=== PATIENT | male | born 1990 | race Caucasian/White ===

== ENCOUNTER 2016-11-16 12:27 | Inpatient (IN) | payer BC, OTHER ==
[~2016-11-16] VITALS: Ht 180.3 cm; Wt 81.6 kg
[2016-11-16] MEDS ORDERED: METH500T PO (17:59)
[2016-11-16] MEDS ORDERED: GABA600T2 PO (17:59)
[2016-11-16 18:08] VITALS: BP 131/72
--- NOTE | 2016-11-16 18:08 | NUR ---
Admissions Note 26 year old male admitted to [facility] for alcohol, opioids, benzodiazepine withdrawal. Client reports PMH of hep C (Sep, 2016), Anxiety, Depression, Bipolar, Kidney stones (at age 12). Client is oriented to unit, educated about protocols and how call light works in his room. Initial VS up on admission were: BP: 131/72 HR 104 T: 98.0 R: 18 SpO2: 95% on RA, Pain 0/10. Weight: 172 pounds. Height: 5'11" Client appears anxious, flushed face noted, skin on right lower extremity with redness, it appears as non-raised rash, client states "It is very itchy." skin discolorations around distal lower R extremity, He stated "I have no idea what happen." no swelling noted. skin warm, moist. Bilateral lung coarse on auscultation, greenish mucous noted, abdomen soft, non-tender, no edema noted. Client has NKA. Regular diet ordered. Client denies any history of seizures. Urine was collected upon admission and noted dark red. All safety measures instituted. Seizure precaution. Call light within reach. Will continue to monitor.
[2016-11-16 18:37] LABS: *AMPHETAMINE, URINE POSITIVE (NEGATIVE); *BARBITURATE, URINE NEGATIVE (NEGATIVE); *CANNABINOID, URINE POSITIVE (NEGATIVE); *COCCAINE, URINE NEGATIVE (NEGATIVE); *OPIATE, URINE NEGATIVE (NEGATIVE); *PHENCYCLIDINE SCREEN,URINE NEGATIVE (NEGATIVE)
[2016-11-16] MEDS ORDERED: MIRALAX 17 GM POWD.PACK PO PRN (18:45)
[2016-11-16] MEDS ORDERED: LORAZEPAM 2 MG/1 ML VIAL IM PRN (18:45)
[2016-11-16] MEDS ORDERED: ACETAMINOPHEN 325 MG TABLET PO PRN (18:45)
[2016-11-16] MEDS ORDERED: ONDANSETRON 4 MG/2 ML VIAL IM PRN (18:45)
[2016-11-16] MEDS ORDERED: DICYCLOMINE HCL 20 MG TABLET PO PRN (18:45)
[2016-11-16] MEDS ORDERED: MAGNESIUM HYDROXIDE 30 ML LIQUID UDC PO PRN (18:45)
[2016-11-16] MEDS ORDERED: LOPERAMIDE HCL 2 MG CAPSULE PO PRN ×2 (18:45)
[2016-11-16] MEDS ORDERED: THIAMINE HCL 200 MG/2 ML VIAL IM ONE (18:45)
[2016-11-16] MEDS ORDERED: BUPRENORPHINE HCL 2 MG TAB.SUBL SL PRN ×2 (18:45→19:00)
[2016-11-16] MEDS ORDERED: ONDANSETRON ODT 4 MG TAB.RAPDIS SL PRN (18:45)
[2016-11-16] MEDS ORDERED: diphenhydrAMINE 50 MG CAPSULE PO PRN (18:45)
[2016-11-16] MEDS ORDERED: MAG HYDROX/AL HYDROX/SIMETH 30 ML LIQUID UDC PO PRN (18:45)
[2016-11-16] MEDS ORDERED: LORAZEPAM 1 MG TABLET PO PRN ×2 (18:45)
[2016-11-16] MEDS ORDERED: IBUPROFEN 400 MG TABLET PO PRN (18:45)
[2016-11-16] MEDS ORDERED: CLONIDINE HCL 0.1 MG TABLET PO PRN (18:45)
[2016-11-16 20:00] VITALS: BP 131/75
[2016-11-16] MEDS ORDERED: BUPRENORPHINE HCL 2 MG TAB.SUBL SL SCH ×2 (20:00)
--- NOTE | 2016-11-16 20:00 | NUR ---
ADMISSION NOTE Pt is 26 year old male, admitted to [facility] 3rd floor on 11/17/15 at 1800; as per day shift, skin and body check done no contraband found. Pt reports no known allergies. PCP Dr Victor Manuel Harrell, [place], [place]. Pt denies previous hospitalizations. Pt reports being homeless for past couple of weeks. Pt reports PMH of: (1) anxiety - diagnosed in 2007; (2) depression - diagnosed in 2009; (3) Hep C - diagnosed in 2016; (4) Kidney stones childhood; (5) herniated disks, slipped disk, pinched nerve - 2009. Pt reports one episode of BZO withdrawal related seizure in 2009, pt ddi not receive medical care at that time. Pt reports she takes the following home medications; 1. Lexapro - 10 mg PO daily for depression, last taken 11/03/16 2. Gabapentin - 600 mg PO TID for depression, last taken on 11/16/16 3. Robaxin - 500 mg prn for body aches, unknown date of last use 4. Subutex 2 mg 2 mg sublingual QID, last taken 11/15/16, 4 mg Substance use hx: 1.Subutex per pt, he started to use heroin at age 19, was in treatment centers where he started to use Suboxone in 2012 2014, since 2014, pt reports using Subutex 8 mg daily sublingually, last taken 11/15/16 In the amount of 4 mg 2.BZO (Xanax and Klonopin) pt started to use BZO at age 17, for last 5 yrs, pt reports using Xanax (prescribed)or klonopin (from streets) daily in the amount of 4-6 mg/ day. Last taken klonopin 11/15/16, 5 mg PO 3.ETOH (750 ml of whiskey and 12 pack beer) pt started to drink ETOH at age 17, fom past 4 yrs, pt reports drinking 750 ml of whiskey and 12 beers daily. Last drink 11/15/16, 36 oz of beer 4.Methamphetamine pt usinfg on/off for past 5 yrs, on average 1g/ day, last taken 11/16/16 1 g by IV 5.Marijuana pt started to smoke marijuana at age 17, 3.5 g daily by smoking, last intake 11/16/16, 1 g by smoking Pt reports smoking tobacco since 2006, approximately 1 pack per day. Provided with smoking cessation information, verbalized understanding. Rehab/ Detox History: 1.[facility] - in 2007 for 30 days 2.Right [facility] in 2010 for 30 days 3.[facility] in 2011 for 3 wks 4.[place], [place] Aug, 2016 for 50 days. Pt reports longest period of sobriety was 9 months at age 20 y o, but pt repots he was on maintenance Suboxone at that time. Pt aaox4, cooperative, speech clear and coherent. Pt reports chills, mild body aches 5/10, stuffy nose, stomach cramps, anxiety; noted flushed skin with minimal sweating, piloerection, minimal hand tremors. COWS 12, CIWA 8. Denies n/v, headache, hallucinations. Denies SI/HI. Skin without open wounds, noted rash on right ankle, non-raised, pt doesn't/t know the causes, states rash developed couple of days ago. Pupils PERRLA, 3 mm bilat. Noted cracked skin on lips. Lung sounds with coarse rhonchi bilat, pt reports cough with green thick sputum for past 5 days. Heart rate regular, cap refill <3 sec, no edema noted. Bowel sounds active x 4, pt denies n/v/d. Pt denies urinary difficulties, yet reports urine color as dark red for past 3 wks. UDS collected Ht /, Wt 180. VS: BP 131/75, HR 98, RR 16, Spo2 99%, temp 98.4 MD notified about pt admission, pt oriented to floor and room, demonstrated use of call light. Side rails up x 2, call light within reach, bed locked in lowest position.
[2016-11-16 20:06] LABS: BASOPHILS # (AUTO) 0.1 K/uL (0.0-8.0); BASOPHILS % (AUTO) 0.7 % (0.0-2.0); EOSINOPHILS # (AUTO) 0.4 K/uL (0.0-0.7); EOSINOPHILS % (AUTO) 4.3 % (0.0-7.0); LYMPHOCYTES # (AUTO) 2.3 K/uL (40.0-85.0); LYMPHOCYTES % (AUTO) 23.6 % (20.5-51.5); MEAN CORPUSCULAR HEMOGLOBIN 29.9 uug (23.8-33.4); MEAN CORPUSCULAR HGB CONC 35 g/dL (32.5-36.3); MEAN CORPUSCULAR VOLUME 86.1 fL (73.0-96.2); MONOCYTES # (AUTO) 1.3 K/uL (2.0-10.0); MONOCYTES % (AUTO) 13.5 % (0.0-11.0); NEUTROPHILS # (AUTO) 5.7 K/uL (1.8-8.9); NEUTROPHILS % (AUTO) 57.9 % (38.5-71.5); PLATELET COUNT (AUTO) 316 K/uL (152-348); RED CELL DISTRIBUTION WIDTH 12.7 % (12.1-16.2); WHITE BLOOD COUNT (AUTO) 9.8 K/uL (3.6-10.2)
[2016-11-16 20:23] LABS: ETHANOL < 3 MG/DL (0-0)
[2016-11-16 20:27] LABS: ALANINE AMINOTRANSFERASE 269 U/L (16-63); ALBUMIN 4.2 g/dL (3.4-5.0); ALKALINE PHOSPHATASE 136 U/L (50-136); AMYLASE 29 U/L (25-115); ASPARTATE AMINOTRANSFERASE 187 U/L (15-37); BILIRUBIN,TOTAL 1.6 mg/dL (0.2-1.0); CALCIUM 9.4 mg/dL (8.5-10.1); CARBON DIOXIDE 32 mmol/L (21-32); CHLORIDE 98 mmol/L (98-107); CREATININE 0.8 mg/dL (0.6-1.3); GFR 118 mL/min (>60); GLUCOSE 98 mg/dL (74-106); LIPASE 109 U/L (73-393); MAGNESIUM 2.3 mg/dL (1.8-2.4); POTASSIUM 3.5 mmol/L (3.5-5.1); SODIUM SERUM 139 mmol/L (136-145); TOTAL PROTEIN, SERUM 8.4 g/dL (6.4-8.2); UREA NITROGEN, BLOOD 16 mg/dL (7-18)
[2016-11-16 20:35] LABS: AMMONIA 15 umol/L (11-32)
[2016-11-16 20:47] LABS: HIV-1 p24 ANTIGEN NON REACTIVE (NONREACTIVE); HIV-1/2 ANTIBODY NON REACTIVE (NONREACTIVE)
[2016-11-16 20:58] LABS: THYROID STIMULATING HORMONE 0.441 mIU/mL (0.358-3.740)
[2016-11-16] MEDS: GABAPENTIN 300 MG CAPSULE PO SCH (20:59)
[2016-11-16] MEDS ORDERED: LORAZEPAM 1 MG TABLET PO SCH (21:00)
--- NOTE | 2016-11-16 21:20 | NUR ---
MRSA SWAB MRSA swab of nares done and sent to lab
[2016-11-17] VITALS: BP 135/77
[2016-11-17] MEDS: HYDROXYZINE PAMOATE 25 MG CAPSULE PO PRN (00:57)
[2016-11-17] MEDS: METHOCARBAMOL 750 MG TABLET PO PRN (00:57)
--- NOTE | 2016-11-17 00:57 | NUR ---
PRN CLONIDINE, VISTARIL, MOTRIN Pt c/o subutex withdrawal, reports moderate anxiety, body aches 5/10, chills. COWS 8, CIWA 5. Administered prn Clonidine 0.1 mg PO, Vistaril 50 mg PO , Motrin 400 mg PO as ordered. Pt in bed, safety precautions in place, will continue to monitor
--- NOTE | 2016-11-17 02:00 | NUR ---
REASSESSMENT Pt sleeping soundly, RR unlabored. Did not bother pt at this time.
[2016-11-17 04:00] VITALS: BP 100/60
--- NOTE | 2016-11-17 04:00 | NUR ---
CIWA/COWS DEFERRED COWS/CIWA assessment deferred per MD order; pt sleeping soundly, fall precautions in place, will continue to monitor Addendum: 11/17/16 at 0618 by ARNOLDO GASTELUM RN Amended: Links added.
[2016-11-17] MEDS ORDERED: ESCI10TA PO (04:28)
[2016-11-17] MEDS ORDERED: BUPR2TAB3 SL (04:28)
--- NOTE | 2016-11-17 07:30 | NUR ---
Start of shift note; Patient is AOX4. Patient is a 26 y/o male admitted on 11/16/16 for Opiate/ Benzo /Alcohol dependence. Patient was placed on 5 day Ativan and 6 day Subutex taper started on 11/16/16 per endorsement. Patient reported history of kidney stones, herniated disc, anxiety, depression. Patient is on fall and seizure precaution. Bed in lowest position, call light within reach. Will continue to monitor patient.
--- NOTE | 2016-11-17 07:37 | NUR ---
END OF SHIFT NOTE Pt is 26 y o male, admitted on 11/16/16 for ETOH, Subutex, bzo (klonopin/ Xanax) withdrawal. On admission, pt had withdrawal s/s of anxiety, chills, piloerection, flushed face, sweats, tremors, stomach cramps, body aches. Pt received Subutex and Ativan scheduled doses. Pt received prn Clonidine, Vistaril, Motrin at 0057 for anxiety, chills, sweats, body aches. Last COWS 8, CIWA 5 at 0000; pt fell asleep at 0100, slept for 5 hrs. MRSA swab was done on admission, pt needs sputum culture collected. Attempted at 0645 am but pt was unable to cough. Pt had dark red urine, rash on right leg, greenish-dave sputum; MD aware. Pt is on fall, seizure precautions, report endorsed to day shift nurse.
[2016-11-17 08:00] VITALS: BP 98/64
[2016-11-17] MEDS ORDERED: BUPRENORPHINE HCL 2 MG TAB.SUBL SL SCH ×3 (09:00→17:00)
[2016-11-17] MEDS ORDERED: TUBERCULIN,PURIF.PROT.DERIV. 5 TU/0.1 ML TEST ID ONE (09:00)
[2016-11-17] MEDS: LORAZEPAM 1 MG TABLET PO SCH ×4 (09:10→21:22)
[2016-11-17] MEDS: MULTIVITAMINS,THERAPEUTIC TABLET PO SCH (09:10)
[2016-11-17] MEDS: GABAPENTIN 300 MG CAPSULE PO SCH ×3 (09:10→21:22)
[2016-11-17] MEDS: THIAMINE HCL 100 MG TABLET PO SCH (09:11)
[2016-11-17] MEDS: FOLIC ACID 1 MG TABLET PO SCH (09:11)
[2016-11-17] MEDS: ESCITALOPRAM OXALATE 10 MG TABLET PO SCH (11:24)
[2016-11-17 12:00] VITALS: BP 111/70
[2016-11-17 16:00] VITALS: BP 97/65
--- NOTE | 2016-11-17 18:16 | NUR ---
End of shift note; Patient is AOX4. Patient remained compliant with treatment plan and medication regime. Medications were effective in reducing withdrawal symptoms. Patient was placed on 5 day Ativan and 6 day Subutex taper, no adverse reactions noted. Patient's last COWS is 6 and last CIWA is 4 at 1600. All safety measures secured. Met all patient's needs.
[2016-11-17 20:00] VITALS: BP 97/61
--- NOTE | 2016-11-17 20:00 | NUR ---
Start of Shift Patient is a 26-year old, male admitted for Opiate, Benzo, Alcohol Dependence. Patient on a 5-day Ativan and 6-day Subutex tapers started on 11/16/16 and tolerates well. Patient reported history of kidney stones, herniated disc, anxiety, depression. Patient is AAOx4 and with no SOB noted. Not in respi distress. Pt is ambulatory with steady gait and with no skin issues. Fall, universal and safety prec in place. Call light within reach. Kept pt warm, dry and comfortable. Latest COWS=4, CIWA=3. All needs met. Will continue to monitor pt.
[2016-11-18] VITALS: BP 94/58
[2016-11-18 04:00] VITALS: BP 100/63
--- NOTE | 2016-11-18 07:00 | NUR ---
End of Shift Patient is a 26-year old, male admitted for Opiate, Benzo, Alcohol Dependence. Patient on a 5-day Ativan and 6-day Subutex tapers started on 11/16/16 and tolerates well. Patient reported history of kidney stones, herniated disc, anxiety, depression. Patient is AAOx4 and with no SOB noted. Not in respi distress. Pt is ambulatory with steady gait and with no skin issues. Fall, universal and safety prec in place. Call light within reach. Kept pt warm, dry and comfortable. Latest COWS=4, CIWA=3, slept for 8 hours. All needs met. Endorsed to AM shift nurse for continuity of care.
--- NOTE | 2016-11-18 07:45 | NUR ---
Start of shift note; Patient is AOX4. Patient is a 26 y/o male admitted on 11/16/16 for Opiate/ Benzo /Alcohol dependence. Patient was placed on 5 day Ativan started on 11/17/16 and 6 day Subutex taper started on 11/16/16 no adverse reactions noted. Patient reported history of kidney stones, herniated disc, anxiety, depression. Patient is on fall and seizure precaution. Bed in lowest position, call light within reach. Educated patient regarding treatment plan and medication regime, verbalized understanding. Patient's current COWS score is 6 and CIWA score of 4 m/b hot and cold flushes, anxiety, nasal stuffiness noted upon initial assessment. All safety measures secured. Will continue to monitor patient.
[2016-11-18 08:00] VITALS: BP 107/63
[2016-11-18] MEDS: GABAPENTIN 300 MG CAPSULE PO SCH ×3 (08:46→20:50)
[2016-11-18] MEDS: FOLIC ACID 1 MG TABLET PO SCH (08:47)
[2016-11-18] MEDS: BUPRENORPHINE HCL 2 MG TAB.SUBL SL SCH ×4 (08:47→20:52)
[2016-11-18] MEDS: THIAMINE HCL 100 MG TABLET PO SCH (08:47)
[2016-11-18] MEDS: MULTIVITAMINS,THERAPEUTIC TABLET PO SCH (08:47)
[2016-11-18] MEDS: ESCITALOPRAM OXALATE 10 MG TABLET PO SCH (08:47)
[2016-11-18] MEDS: LORAZEPAM 1 MG TABLET PO SCH ×3 (08:48→20:50)
[2016-11-18] MEDS ORDERED: BUPRENORPHINE HCL 2 MG TAB.SUBL SL SCH (09:00)
[2016-11-18 09:20] LABS: ALBUMIN 3.1 g/dL (3.4-5.0); BILIRUBIN,DIRECT 0.2 mg/dL (0.0-0.2); BILIRUBIN,TOTAL 0.5 mg/dL (0.2-1.0); CALCIUM 8.8 mg/dL (8.5-10.1); CREATININE 0.8 mg/dL (0.6-1.3); PHOSPHOROUS 3.6 mg/dL (2.5-4.9); TOTAL PROTEIN, SERUM 6.6 g/dL (6.4-8.2)
--- NOTE | 2016-11-18 11:00 | NUR ---
MD communication; Respiratory culture result reviewed by MD, no new orders noted.
[2016-11-18 12:00] VITALS: BP 100/64
[2016-11-18 16:00] VITALS: BP 112/62
[2016-11-18] MEDS: METHOCARBAMOL 750 MG TABLET PO PRN (17:09)
--- NOTE | 2016-11-18 17:10 | NUR ---
PRN medication; Patient is complaining of body/muscle aches, PRN Robaxin 750mg PO given as per ordered. Will continue to monitor patient for effectiveness of treatment.
--- NOTE | 2016-11-18 18:11 | NUR ---
Re-assessment; PRN medication is effective, patient denies muscle/body aches at this time.
--- NOTE | 2016-11-18 18:13 | NUR ---
End of shift note; Patient is AOX4. Patient is a 26 y/o male admitted on 11/16/16 for Opiate/ Benzo /Alcohol dependence. Patient was placed on 5 day Ativan started on 11/17/16 and 6 day Subutex taper started on 11/16/16 no adverse reactions noted. Patient reported history of kidney stones, herniated disc, anxiety, depression. Patient is on fall and seizure precaution. Bed in lowest position, call light within reach. Patient remained compliant with treatment plan and medication regime. Medications were effective in reducing withdrawal symptoms. Safety measures secured. Met all needs.
[2016-11-18 20:00] VITALS: BP 100/56
--- NOTE | 2016-11-18 20:00 | NUR ---
Start of Shift Patient is a 26-year old, male admitted for Opiate, Benzo, Alcohol Dependence. Patient on a 5-day Ativan and 6-day Subutex tapers started on 11/16/16 and tolerates well. Patient reported history of kidney stones, herniated disc, anxiety, depression. Patient is AAOx4 and with no SOB noted. Not in respi distress. Pt still noted with productive cough, with greenish sputum, though per pt verbalization: "my cough is getting better today than yesterday." Sputum culture result reviewed by Dr. Voss, with no new orders. Pt is ambulatory with steady gait and with no skin issues. Fall, universal and safety prec in place. Call light within reach. Kept pt warm, dry and comfortable. Latest COWS=3, CIWA=2. All needs met. Will continue to monitor pt.
[2016-11-19] VITALS: BP 96/58
--- NOTE | 2016-11-19 04:08 | NUR ---
RN note Pt refused vital signs check and COWS/CIWA assessment despite explanation of risks and benefits. RR=14, no SOB noted nor facial grimacing noted. Will continue to monitor.
--- NOTE | 2016-11-19 07:01 | NUR ---
End of Shift Patient is a 26-year old, male admitted for Opiate, Benzo, Alcohol Dependence. Patient on a 5-day Ativan and 6-day Subutex tapers started on 11/16/16 and tolerates well. Patient reported history of kidney stones, herniated disc, anxiety, depression. Patient is AAOx4 and with no SOB noted. Not in respi distress. Pt still noted with productive cough, with greenish sputum, though per pt verbalization: "my cough is getting better today than yesterday." Sputum culture result reviewed by Dr. Voss, with no new orders. Pt is ambulatory with steady gait and with no skin issues. Fall, universal and safety prec in place. Call light within reach. Kept pt warm, dry and comfortable. Latest COWS=2, CIWA=2, slept for 7 hours. All needs met. Endorsed to AM shift nurse for continuity of care.
--- NOTE | 2016-11-19 07:40 | NUR ---
Start of shift note; Patient is AOX4. Patient is a 26 y/o male admitted on 11/16/16 for Opiate/ Benzo /Alcohol dependence. Patient was placed on 5 day Ativan started on 11/17/16 and 6 day Subutex taper started on 11/16/16 no adverse reactions noted. Patient reported history of kidney stones, herniated disc, anxiety, depression. Patient is on fall and seizure precaution. Bed in lowest position, call light within reach. Educated patient regarding treatment plan and medication regime, verbalized understanding. Patient is complaining of hot and cold flushes, nasal stuffiness noted upon initial assessment. All safety measures secured. Will continue to monitor patient.
[2016-11-19 08:00] VITALS: BP 116/89
[2016-11-19 08:28] LABS: ALANINE AMINOTRANSFERASE 363 U/L (16-63); ALBUMIN 2.7 g/dL (3.4-5.0); ALKALINE PHOSPHATASE 147 U/L (50-136); ASPARTATE AMINOTRANSFERASE 305 U/L (15-37); BILIRUBIN,DIRECT 0.1 mg/dL (0.0-0.2); BILIRUBIN,TOTAL 0.3 mg/dL (0.2-1.0); CALCIUM 8.1 mg/dL (8.5-10.1); CHLORIDE 107 mmol/L (98-107); CREATININE 0.7 mg/dL (0.6-1.3); GFR > 130 mL/min (>60); GLUCOSE 112 mg/dL (74-106); MAGNESIUM 2.1 mg/dL (1.8-2.4); POTASSIUM 3.7 mmol/L (3.5-5.1); SODIUM SERUM 143 mmol/L (136-145); TOTAL PROTEIN, SERUM 5.9 g/dL (6.4-8.2); UREA NITROGEN, BLOOD 13 mg/dL (7-18)
[2016-11-19 08:29] LABS: CARBON DIOXIDE 33 mmol/L (21-32)
[2016-11-19] MEDS: GABAPENTIN 300 MG CAPSULE PO SCH ×2 (08:49→15:34)
[2016-11-19] MEDS: MULTIVITAMINS,THERAPEUTIC TABLET PO SCH (08:50)
[2016-11-19] MEDS: BUPRENORPHINE HCL 2 MG TAB.SUBL SL SCH ×3 (08:50→21:00)
[2016-11-19] MEDS: FOLIC ACID 1 MG TABLET PO SCH (08:50)
[2016-11-19] MEDS: LORAZEPAM 1 MG TABLET PO SCH ×4 (08:50→21:26)
[2016-11-19] MEDS: THIAMINE HCL 100 MG TABLET PO SCH (08:50)
[2016-11-19] MEDS: ESCITALOPRAM OXALATE 10 MG TABLET PO SCH (08:50)
[2016-11-19] MEDS: METHOCARBAMOL 750 MG TABLET PO PRN (11:26)
[2016-11-19] MEDS: HYDROXYZINE PAMOATE 25 MG CAPSULE PO PRN (11:26)
--- NOTE | 2016-11-19 11:29 | NUR ---
PRN medication; Patient is complaining of muscle aches and noted to be very anxious m/b pacing back in forth in the room, redirected as needed. PRN Vistaril 50mg PO and Robaxin 750mg PO given. Will continue to monitor patient for effectiveness of medication.
[2016-11-19 12:00] VITALS: BP 127/88
--- NOTE | 2016-11-19 12:18 | NUR ---
PRN medication; Patient is complaining of tooth pain rated 6/10, Motrin 400mg PO PRN given for pain. Will continue to monitor for effectiveness of medication.
--- NOTE | 2016-11-19 12:29 | NUR ---
Re-assessment; PRN medications effective, patient noted to be calm and comfortable, denies muscle aches at this time.
--- NOTE | 2016-11-19 13:18 | NUR ---
Re-assessment; PRN Motrin ineffective. Patient is still complaining of toothache, MD made aware, awaiting for new orders.
[2016-11-19] MEDS ORDERED: BENZOCAINE ORAL CARE 12 ML BOTTLE MM PRN (14:00)
--- NOTE | 2016-11-19 15:34 | NUR ---
PRN medication; PRN Anbesol oral care given for dental/ tooth pain. Will continue to monitor effectiveness of medication.
[2016-11-19 16:00] VITALS: BP 101/58
--- NOTE | 2016-11-19 16:34 | NUR ---
Re-assessment; Patient denies pain at this time. PRN Anbesol is effective.
--- NOTE | 2016-11-19 18:17 | NUR ---
End of shift note; Patient is AOX4. Patient is a 26 y/o male admitted on 11/16/16 for Opiate/ Benzo /Alcohol dependence. Patient was placed on 5 day Ativan started on 11/17/16 and 6 day Subutex taper started on 11/16/16 no adverse reactions noted. Patient reported history of kidney stones, herniated disc, anxiety, depression. Patient is on fall and seizure precaution. Bed in lowest position, call light within reach. Patient remained compliant with treatment plan and medication regime. Medications were effective in reducing withdrawal symptoms. Patient's last COWS score is 3 and CIWA of 1 at 1600. Safety measures secured. Met all needs.
--- NOTE | 2016-11-19 19:45 | NUR ---
START OF SHIFT NOTE Received report from day shift nurse. Pt is 26 y o male, admitted on 11/16/16 for Subutex, BZO (Xanax and Klonopin), ETOH (whiskey and beer), methamphetamine, marijuana. Pt is on 5 day Ativan, 6 day Subutex taper. Pt in bed, asleep. Awakened by verbal stimuli, oriented x 3, cooperative. Noted flushed skin, no tremors, pt reports mild anxiety, pt reports mild anxiety and stuffy nose. Pt denies pain at this time. Noted productive cough with small amounts of yellowish sputum, lung sounds clear bilat on auscultation. CXR done and no abnormalities shown on CXR. Heart rate regular. Bowel sounds active x 4, denies n/v/d. Pt denies urinary difficulties but reports dark-yellow urine. Per day shift MD aware, no new orders. PMH of Hep C, herniated disks, anxiety, depression. Pt is on fall and seizure precautions. Side rails up x 2, call light within reach, bed locked in lowest position.
[2016-11-19 20:00] VITALS: BP 96/54
[2016-11-19] MEDS ORDERED: GABAPENTIN 300 MG CAPSULE PO SCH (21:00)
[2016-11-19] MEDS: DICYCLOMINE HCL 20 MG TABLET PO SCH (21:26)
--- NOTE | 2016-11-19 21:55 | NUR ---
SUBUTEX HELD Pt in room, BP 96/54. COWS score 4. As per Subutex order parameters, held the dose d/t DBP <[address] Voss notified, NNO.
[2016-11-20] VITALS: BP 109/70
--- NOTE | 2016-11-20 | NUR ---
CIWA/COWS DEFERRED COWS/CIWA assessment deferred per MD order; pt sleeping soundly, fall precautions in place, will continue to monitor Addendum: 11/21/16 at 0226 by ARNOLDO GASTELUM RN Amended: Links added.
--- NOTE | 2016-11-20 | NUR ---
CIWA/COWS DEFERRED COWS/CIWA assessment deferred per MD order; pt sleeping soundly, fall precautions in place, will continue to monitor Addendum: 11/20/16 at 0329 by ARNOLDO GASTELUM RN Amended: Links added.
[2016-11-20 04:00] VITALS: BP 105/50
--- NOTE | 2016-11-20 04:00 | NUR ---
CIWA/COWS DEFERRED COWS/CIWA assessment deferred per MD order; pt sleeping soundly, fall precautions in place, will continue to monitor Addendum: 11/20/16 at 0433 by ARNOLDO GASTELUM RN Amended: Links added.
[2016-11-20 04:06] LABS: HCV AB >11.0 s/co ratio (0.0-0.9); HEPATITIS B CORE AB, IgM Negative (Negative); HEPATITIS B SURFACE AG Negative (Negative)
--- NOTE | 2016-11-20 07:21 | NUR ---
END OF SHIFT NOTE Pt is 26 y o male, admitted on 11/16/16 for Subutex, BZO (Xanax and Klonopin), ETOH (whiskey and beer), methamphetamine, marijuana. Pt is on 5 day Ativan, 6 day Subutex taper. Pt had withdrawal s/s of chills, anxiety, nasal congestion. Scheduled Subutex was held d/t BP of 96/54. Pt slept for 10 hr throughout the shift, VSS, last COWS 4, CIWA 3 at 1999. No prns were received. PMH of Hep C, herniated disks, anxiety, depression. Pt is on fall and seizure precautions. Report endorsed to day shift nurse.
--- NOTE | 2016-11-20 07:55 | NUR ---
Start of shift note; Patient is AOX4. Patient is a 26 y/o male admitted on 11/16/16 for Opiate/ Benzo /Alcohol dependence. Patient was placed on 5 day Ativan started on 11/17/16 and 6 day Subutex taper started on 11/16/16 no adverse reactions noted. Patient reported history of kidney stones, herniated disc, anxiety, depression. Patient is on fall and seizure precaution. Bed in lowest position, call light within reach. Educated patient regarding treatment plan and medication regime, verbalized understanding. Patient is complaining of hot and cold flushes, body aches noted upon initial assessment. All safety measures secured. Will continue to monitor patient.
[2016-11-20 08:00] VITALS: BP 98/62
[2016-11-20] MEDS ORDERED: GABAPENTIN 300 MG CAPSULE PO SCH (09:00)
[2016-11-20] MEDS ORDERED: BUPRENORPHINE HCL 2 MG TAB.SUBL SL SCH (09:00)
[2016-11-20] MEDS: ESCITALOPRAM OXALATE 10 MG TABLET PO SCH (09:20)
[2016-11-20] MEDS: THIAMINE HCL 100 MG TABLET PO SCH (09:20)
[2016-11-20] MEDS: LORAZEPAM 1 MG TABLET PO SCH ×3 (09:20→20:33)
[2016-11-20] MEDS: FOLIC ACID 1 MG TABLET PO SCH (09:20)
[2016-11-20] MEDS: MULTIVITAMINS,THERAPEUTIC TABLET PO SCH (09:20)
[2016-11-20] MEDS: DICYCLOMINE HCL 20 MG TABLET PO SCH ×3 (09:20→20:33)
[2016-11-20] MEDS ORDERED: METHYL SALICYLATE/MENTHOL CREAM 28 GM TUBE TOP PRN (11:30)
[2016-11-20] MEDS: LIDOCAINE 5% PATCH TD SCH (11:33)
[2016-11-20 12:00] VITALS: BP 107/61
[2016-11-20] MEDS: BACLOFEN 10 MG TABLET PO SCH ×2 (14:16→20:37)
[2016-11-20] MEDS: GABAPENTIN 300 MG CAPSULE PO SCH ×2 (14:16→20:33)
[2016-11-20 16:00] VITALS: BP 101/55
[2016-11-20] MEDS ORDERED: MAGNESIUM CITRATE 296 ML BOTTLE PO PRN (17:30)
[2016-11-20] MEDS ORDERED: BISACODYL 5 MG TABLET.DR PO PRN (17:30)
[2016-11-20] MEDS ORDERED: BISACODYL 10 MG SUPP.RECT RC PRN (17:30)
[2016-11-20] MEDS: BUPRENORPHINE HCL 2 MG TAB.SUBL SL SCH ×2 (17:37→20:33)
--- NOTE | 2016-11-20 19:50 | NUR ---
START OF SHIFT NOTE Received report from day shift nurse. Pt is 26 y o male, admitted on 11/16/16 for Subutex, BZO (Xanax an d Klonopin), ETOH (whiskey and beer), methamphetamine, marijuana. PMH of Hep C, herniated disks, anxiety, depression. Pt is on 5 day Ativan taper started 11/17/16. Noted that Subutex taper got modified by Dr Voss today so that last day of taper will be 11/22/16. Pt in bed, watching T, aaox4. Noted flushed skin with mild diaphoresis, pt reports mild anxiety, and stuffy nose. No tremors noted. Pt reports body aches 3/10, generalized. R unlabored, lung sounds clear bilat, observed productive cough with small amounts of yellowish-white sputum. Heart rate regular. Bowel sounds active x 4, denies n/v/stomach cramps. Pt denies urinary difficulties but reports dark-yellow urine. Pt is on fall and seizure precautions. Side rails up x 2, call light within reach, bed locked in lowest position.
[2016-11-20 20:00] VITALS: BP 103/65
[2016-11-21] VITALS: BP 107/53
--- NOTE | 2016-11-21 | NUR ---
CIWA/COWS DEFERRED COWS/CIWA assessment deferred per MD order; pt sleeping soundly, fall precautions in place, will continue to monitor
[2016-11-21 04:00] VITALS: BP 100/52
--- NOTE | 2016-11-21 04:00 | NUR ---
CIWA/COWS DEFERRED COWS/CIWA assessment deferred per MD order; pt sleeping soundly, fall precautions in place, will continue to monitor Addendum: 11/21/16 at 0625 by ARNOLDO GASTELUM RN Amended: Links added.
--- NOTE | 2016-11-21 07:10 | NUR ---
END OF SHIFT NOTE Pt is 26 y o male, admitted on 11/16/16 for Subutex, BZO (Xanax and Klonopin), ETOH (whiskey and beer), methamphetamine, marijuana. Pt is on day 4 of 5 day Ativan taper started 11/17/16 and day 4 of Subutex taper, subutex taper was modified on 11/21/16 to be extended until 11/22/16. Pi was observed with withdrawal s/s of anxiety, body aches, runny nose, sweating. Last COWS 6, CIWA 3. VSS. All scheduled medication given as ordered, no prns were administered. Pt slept for 7 hrs. Pt is on fall and seizure precautions. Report endorsed juanpablo day shift nurse.
--- NOTE | 2016-11-21 07:33 | NUR ---
Start of shift note; Patient is AOX4. Patient is a 26 y/o male admitted on 11/16/16 for Opiate/ Benzo /Alcohol dependence. Patient was placed on 5 day Ativan started on 11/17/16 and 6 day Subutex taper started on 11/16/16 no adverse reactions noted. Patient reported history of kidney stones, herniated disc, anxiety, depression. Patient is on fall and seizure precaution. Bed in lowest position, call light within reach. Educated patient regarding treatment plan and medication regime, verbalized understanding. Patient is complaining of hot and cold flushes, body aches noted upon initial assessment. Patient 's last COWS is 6 and CIWA of 3 per endorsement. All safety measures secured. Will continue to monitor patient.
[2016-11-21 07:53] LABS: ALANINE AMINOTRANSFERASE 525 U/L (16-63); ALBUMIN 2.8 g/dL (3.4-5.0); ALKALINE PHOSPHATASE 145 U/L (50-136); ASPARTATE AMINOTRANSFERASE 379 U/L (15-37); BILIRUBIN,DIRECT 0.1 mg/dL (0.0-0.2); BILIRUBIN,TOTAL 0.3 mg/dL (0.2-1.0); CALCIUM 8.2 mg/dL (8.5-10.1); CARBON DIOXIDE 31 mmol/L (21-32); CHLORIDE 107 mmol/L (98-107); CREATININE 0.7 mg/dL (0.6-1.3); GFR > 130 mL/min (>60); GLUCOSE 99 mg/dL (74-106); PHOSPHOROUS 4.5 mg/dL (2.5-4.9); POTASSIUM 4.1 mmol/L (3.5-5.1); SODIUM SERUM 142 mmol/L (136-145); TOTAL PROTEIN, SERUM 5.9 g/dL (6.4-8.2); UREA NITROGEN, BLOOD 16 mg/dL (7-18)
[2016-11-21 08:00] VITALS: BP 102/66
[2016-11-21] MEDS ORDERED: BUPRENORPHINE HCL 2 MG TAB.SUBL SL SCH ×2 (09:00)
[2016-11-21] MEDS: THIAMINE HCL 100 MG TABLET PO SCH (09:00)
[2016-11-21] MEDS: ESCITALOPRAM OXALATE 10 MG TABLET PO SCH (09:17)
[2016-11-21] MEDS: FOLIC ACID 1 MG TABLET PO SCH (09:17)
[2016-11-21] MEDS: LORAZEPAM 1 MG TABLET PO SCH ×2 (09:17→20:03)
[2016-11-21] MEDS: MULTIVITAMINS,THERAPEUTIC TABLET PO SCH (09:17)
[2016-11-21] MEDS: DICYCLOMINE HCL 20 MG TABLET PO SCH ×3 (09:17→20:02)
[2016-11-21] MEDS: DOCUSATE SODIUM 250 MG CAPSULE PO SCH (09:17)
[2016-11-21] MEDS: BACLOFEN 10 MG TABLET PO SCH ×3 (09:17→20:02)
[2016-11-21] MEDS: GABAPENTIN 300 MG CAPSULE PO SCH ×3 (09:18→20:02)
[2016-11-21] MEDS: LIDOCAINE 5% PATCH TD SCH (09:18)
[2016-11-21 12:00] VITALS: BP 111/57
[2016-11-21 16:00] VITALS: BP 101/54
[2016-11-21] MEDS: BUPRENORPHINE HCL 2 MG TAB.SUBL SL SCH ×2 (16:55→20:04)
--- NOTE | 2016-11-21 17:00 | NUR ---
Medication held; Due medication (Subutex) held d/t BP is less than 90/60 held per protocol, patient's current BP is 92/52 with HR of 60. Patient is currently resting with eyes closed, respiration even and unlabored. MD notified that medication was held. Will continue to monitor patient.
--- NOTE | 2016-11-21 19:15 | NUR ---
START OF SHIFT Received 26 year old male patient admitted on 11/16/16 for Benzo, ETOH, Subutex, methamphetamine and marijuana dependency. Pt is full code with NKA. He reports a PMHx of hep C, kidney stones, herniated disc and pinched nerve, anxiety and depression. Pt reports using Xanax.Klonopin PO 4-6 mg daily for 9 years. Last dose was Klonopin 5 mg on 11/15/16. ETOH (whiskey/ beer) 750 mL of whiskey and 12 pack of beer daily for 9 years. Last dose was 36 oz of beer on 11/15/16. Subutex 8 mg daily for 2 years. Last dose was 4 mg SL on 11/15/16. Methamphetamine 1 gram occasionally for 5 years. Last dose was 1 gram IV on 11/16/16. And Marijuana 3.5 gram daily for 9 years. Last dose was 1 gram on 11/16/16. Pt was placed on a 5 day Ativan taper started on 11/17/16 and 6 day Subutex taper started and tolerating well. Per endorsement, pt did not receive or request PRN medications. Pt is alert and oriented x4, breathing is even and unlabored, safety measures in place. Will continue to monitor.
[2016-11-21] MEDS: METHOCARBAMOL 750 MG TABLET PO PRN (19:32)
--- NOTE | 2016-11-21 19:32 | NUR ---
PRN ROBAXIN Pt complains of back muscle pain 04/14. PRN Robaxin administered as ordered. Breathing even and unlabored, safety measures in place. Will continue to monitor effectiveness.
[2016-11-21 20:00] VITALS: BP 121/72
--- NOTE | 2016-11-21 20:32 | NUR ---
PRN ROBAXIN REASSESSMENT Pt reports PRN medication effective in relieving his back pain to 6/10. Breathing even and unlabored, safety measures in place. Will continue to monitor.
--- NOTE | 2016-11-22 | NUR ---
COWS/CIWA DEFERRED COWS/CIWA deferred d/t order is Q4H while awake. Pt lying in bed with eyes closed noted to be asleep. No facial grimacing. Respirations 16, breathing is even and unlabored, safety measures in place. Will continue to monitor.
[2016-11-22 00:44] VITALS: BP 110/63
[2016-11-22 04:00] VITALS: BP 108/58
--- NOTE | 2016-11-22 07:03 | NUR ---
END OF SHIFT Pt is a 26 year old male patient admitted on 11/16/16 for Benzo, ETOH, Subutex, methamphetamine and marijuana dependency. Pt is full code with NKA. He reports a PMHx of hep C, kidney stones, herniated disc and pinched nerve, anxiety and depression. Pt was placed on a 5 day Ativan taper started on 11/17/16 and 6 day Subutex taper started and tolerating well. At 1932 he received PRN Robaxin for lower back muscle pain. PRN medication effective. He slept a total of 7 hrs, Intake: 500mL Void:x2 BM: x1 COWS:5, CIWA: 4 at 2000. Pt is alert and oriented x4, breathing is even and unlabored, safety measures in place. Endorsed to oncoming nurse.
--- NOTE | 2016-11-22 07:31 | NUR ---
START OF SHIFT NOTE: Received report from cnc machinist 2nd shift nurse. Pt is a 26 year old male patient admitted on 11/16/16 for Benzo, ETOH, Subutex, methamphetamine and marijuana dependency. Pt on a 6 day Subutex taper and a 5 day Ativan taper. Tolerating well. Pt is alert and oriented X4. Color good, skin warm and dry. Respirations even and unlabored. Safety precautions observed. Call light within reach. Will continue to monitor.
[2016-11-22 08:00] VITALS: BP 102/60
[2016-11-22] MEDS: BACLOFEN 10 MG TABLET PO SCH (08:48)
[2016-11-22] MEDS: DICYCLOMINE HCL 20 MG TABLET PO SCH ×3 (08:48→20:04)
[2016-11-22] MEDS: LORAZEPAM 1 MG TABLET PO SCH ×2 (08:48→20:04)
[2016-11-22] MEDS: FOLIC ACID 1 MG TABLET PO SCH (08:48)
[2016-11-22] MEDS: GABAPENTIN 300 MG CAPSULE PO SCH ×3 (08:48→20:04)
[2016-11-22] MEDS: MULTIVITAMINS,THERAPEUTIC TABLET PO SCH (08:48)
[2016-11-22] MEDS: ESCITALOPRAM OXALATE 10 MG TABLET PO SCH (08:48)
[2016-11-22] MEDS: DOCUSATE SODIUM 250 MG CAPSULE PO SCH (08:48)
[2016-11-22] MEDS: BUPRENORPHINE HCL 2 MG TAB.SUBL SL SCH ×2 (08:48→20:05)
[2016-11-22] MEDS: THIAMINE HCL 100 MG TABLET PO SCH (08:48)
[2016-11-22] MEDS ORDERED: BUPRENORPHINE HCL 2 MG TAB.SUBL SL SCH (09:00)
[2016-11-22] MEDS: LIDOCAINE 5% PATCH TD SCH (09:00)
--- NOTE | 2016-11-22 09:55 | NUR ---
VSS COWS 6 CIWA 7 Pt c/o body aches, sweating and anxiety.
[2016-11-22 12:13] VITALS: BP 102/60
[2016-11-22] MEDS ORDERED: BACLOFEN 10 MG TABLET PO SCH (15:00)
--- NOTE | 2016-11-22 15:00 | NUR ---
VSS CIWA 6 COWS 5 Pt sleeping most of the day. C/O body aches, anxiety and sweating.
[2016-11-22] MEDS: BACLOFEN 20 MG TABLET PO SCH ×2 (15:41→20:04)
[2016-11-22 16:30] VITALS: BP 113/62
--- NOTE | 2016-11-22 18:45 | NUR ---
END OF SHIFT NOTE: Report given to shift engineer nurse. Pt is a 26 year old male patient admitted on 11/16/16 for Benzo, ETOH, Subutex, methamphetamine and marijuana dependency. Pt on a 6 day Subutex taper and a 5 day Ativan taper. Tolerating well. Pt is alert and oriented X4. Color good, skin warm and dry. Respirations even and unlabored. Vital signs have remained stable throughout shift. Last COWS 6 CIWA 5 @ 1500. Safety precautions observed. Call light within reach.
--- NOTE | 2016-11-22 19:15 | NUR ---
START OF SHIFT Received 26 year old male patient admitted on 11/16/16 for Benzo, ETOH, Subutex, methamphetamine and marijuana dependency. Pt is full code with NKA. He reports a PMHx of hep C, kidney stones, herniated disc and pinched nerve, anxiety and depression. Pt reports using Xanax.Klonopin PO 4-6 mg daily for 9 years. Last dose was Klonopin 5 mg on 11/15/16. ETOH (whiskey/ beer) 750 mL of whiskey and 12 pack of beer daily for 9 years. Last dose was 36 oz of beer on 11/15/16. Subutex 8 mg daily for 2 years. Last dose was 4 mg SL on 11/15/16. Methamphetamine 1 gram occasionally for 5 years. Last dose was 1 gram IV on 11/16/16. And Marijuana 3.5 gram daily for 9 years. Last dose was 1 gram on 11/16/16. Pt was placed on a 5 day Ativan taper started on 11/17/16 and 6 day Subutex taper started 11/16/16. His taper was modified on on 11/21/16. Pt will be off Ativan taper on 11/23/16 and off Subutex taper on 11/24/16. Pt tolerating well. Per endorsement, pt did not receive or request PRN medications. Pt is alert and oriented x4, breathing is even and unlabored, safety measures in place. Will continue to monitor.
[2016-11-22 20:00] VITALS: BP 112/63
--- NOTE | 2016-11-22 20:11 | NUR ---
LOUANN PEGUERO Pt complains of upper back achy pain 01/12. LOUANN peguero administered as ordered. Breathing even and unlabored, will continue to monitor effectiveness.
--- NOTE | 2016-11-22 20:40 | NUR ---
LOUANN PEGUERO REASSESSMENT Pt reports relief of back pain 11/12. Breathing even and unlabored, safety measures in place. Will continue to monitor.
[2016-11-23] VITALS: BP 95/53
--- NOTE | 2016-11-23 | NUR ---
COWS/CIWA DEFERRED COWS/CIWA deferred d/t order is Q4H while awake. Pt lying in bed with eyes closed noted to be asleep. Respirations 16, breathing is even and unlabored, safety measures in place. Will continue to monitor.
[2016-11-23 04:00] VITALS: BP 101/62
--- NOTE | 2016-11-23 07:05 | NUR ---
END OF SHIFT Pt is a 26 year old male patient admitted on 11/16/16 for Benzo, ETOH, Subutex, methamphetamine and marijuana dependency. Pt is full code with NKA. He reports a PMHx of hep C, kidney stones, herniated disc and pinched nerve, anxiety and depression. Pt received PRN [place] for his back pain, medication was effective. He slept a total of 6 hrs, Intake: 1151 mL, Void: x2, BM:0. COWS:5, CIWA:5. Pt is alert and oriented x4, breathing is even and unlabored, safety measures in place. Endorsed to oncoming shift.
--- NOTE | 2016-11-23 07:28 | NUR ---
START OF SHIFT NOTE: Received report from night court magistrate nurse. Pt is a 26 year old male patient admitted on 11/16/16 for Benzo, ETOH, Subutex, methamphetamine and marijuana dependency. Pt on a 6 day Subutex taper and a 5 day Ativan taper. Tolerating well. Pt is alert and oriented X4. Color good, skin warm and dry. Respirations even and unlabored. Safety precautions observed. Call light within reach. Will continue to monitor.
[2016-11-23] MEDS: LIDOCAINE 5% PATCH TD SCH (09:00)
[2016-11-23] MEDS ORDERED: BUPRENORPHINE HCL 2 MG TAB.SUBL SL SCH (09:00)
[2016-11-23 09:03] VITALS: BP 122/74
[2016-11-23] MEDS: DOCUSATE SODIUM 250 MG CAPSULE PO SCH (09:40)
[2016-11-23] MEDS: DICYCLOMINE HCL 20 MG TABLET PO SCH ×3 (09:41→20:40)
[2016-11-23] MEDS: ESCITALOPRAM OXALATE 10 MG TABLET PO SCH (09:41)
[2016-11-23] MEDS: GABAPENTIN 300 MG CAPSULE PO SCH ×3 (09:41→20:40)
[2016-11-23] MEDS: THIAMINE HCL 100 MG TABLET PO SCH (09:42)
[2016-11-23] MEDS: BACLOFEN 20 MG TABLET PO SCH ×3 (09:42→20:40)
[2016-11-23] MEDS: FOLIC ACID 1 MG TABLET PO SCH (09:42)
[2016-11-23] MEDS: MULTIVITAMINS,THERAPEUTIC TABLET PO SCH (09:42)
--- NOTE | 2016-11-23 09:45 | NUR ---
VSS COWS 6 CIWA 7 Pt c/o body aches, sweating and anxiety. resting in bed.
--- NOTE | 2016-11-23 11:56 | NUR ---
Pt endorsed to DEVORAH Colin
--- NOTE | 2016-11-23 11:56 | NUR ---
Endorsement received Pt is a 26 y/o male nka full code regular diet on fall and seizure precautions. L ast CIWA 7 last COWS: 6 taken at 0800. pt is on a 5 day Ativan and a 6 day Subutex taper tolerating well, will continue to monitor and provide support.
[2016-11-23 12:00] VITALS: BP 120/77
[2016-11-23] MEDS ORDERED: NAPROXEN 250 MG TABLET PO ONE (15:00)
[2016-11-23] MEDS ORDERED: LIDO30AD10 TD (15:58)
[2016-11-23] MEDS ORDERED: Famotidine PO (15:58)
[2016-11-23] MEDS ORDERED: Baclofen PO (15:58)
[2016-11-23] MEDS ORDERED: DIPH50CA37 PO (15:58)
[2016-11-23] MEDS ORDERED: HYDR-3895 PO (15:58)
[2016-11-23] MEDS ORDERED: Naproxen PO (15:58)
[2016-11-23] MEDS ORDERED: Gabapentin PO (15:58)
[2016-11-23] MEDS ORDERED: DICY20TA28 PO (15:58)
[2016-11-23] MEDS ORDERED: Docusate Sodium PO (15:58)
[2016-11-23 16:00] VITALS: BP 119/80
[2016-11-23 17:09] LABS: ALBUMIN 3.3 g/dL (3.4-5.0); BILIRUBIN,DIRECT 0.1 mg/dL (0.0-0.2); BILIRUBIN,TOTAL 0.3 mg/dL (0.2-1.0); CALCIUM 8.5 mg/dL (8.5-10.1); MAGNESIUM 2.1 mg/dL (1.8-2.4); POTASSIUM 4.1 mmol/L (3.5-5.1); TOTAL PROTEIN, SERUM 6.7 g/dL (6.4-8.2)
--- NOTE | 2016-11-23 19:14 | NUR ---
End of Shift Report given to shift mgr nurse. Pt is a 26 year old male patient admitted on 11/16/16 for Benzo, ETOH, Subutex, methamphetamine and marijuana dependency. Pt on a 6 day Subutex taper and a 5 day Ativan taper. Tolerating well. Pt did not receive any PRN medications, Pt presented with sweats, agitation, chills, and tremors, his scheduled medications have been given. Pt to be discharged tomorrow. Discharge paperwork completed. Pts last CIWA: 2 COWS: 2 taken at 1600. Pt is alert and oriented x4, breathing is even and unlabored. Pt slept most of the day and attended some activities, he reported that the medication is working well at controlling his withdrawal symptoms. He had a total fluid intake of 1081ml with 3 voids and 1 bowel movement. Pt safe with bed locked in lowest position, side rails up x2 and call light within reach, all safety measures in place will continue to monitor and provide support.
[2016-11-23 20:00] VITALS: BP 103/61
--- NOTE | 2016-11-23 20:00 | NUR ---
Start of Shift Pt is a 26-year old, male, admitted for Benzo, ETOH, Subutex, Methamphetamine and Marijuana dependence. Pt is on Regular Diet, Full Code with NKA. He reports a PMHx of Hep C, Kidney Stones, Herniated Disc, Pinched Nerve, Anxiety and Depression. Pt reports using Xanax, Klonopin PO 4-6 mg daily for 9 years, ETOH (whiskey/ beer) 750 mL of whiskey and 12 pack of beer daily for 9 years, Subutex 8 mg daily for 2 years, Methamphetamine 1 gram occasionally for 5 years and Marijuana 3.5 gram daily for 9 years. Pt was placed on a 5 day Ativan taper started on 11/17/16 and 6 day Subutex taper started 11/16/16. His taper was modified on on 11/21/16. Both tapers done and with no untoward signs and symptoms. Pt is AAOx4, with mild anxiety noted. With flushed skin observed. Pt is ambulatory with steady gait, with no open skin noted. No SOB noted, not in respi distress. Fall, universal, seizure and safety prec in place. Call light within reach. Kept pt warm, dry and comfortable. All needs met. Latest COWS=3, CIWA=1. Will continue to monitor pt.
[2016-11-23 20:25] LABS: *AMPHETAMINE, URINE NEGATIVE (NEGATIVE); *BARBITURATE, URINE NEGATIVE (NEGATIVE); *CANNABINOID, URINE NEGATIVE (NEGATIVE); *COCCAINE, URINE NEGATIVE (NEGATIVE); *OPIATE, URINE NEGATIVE (NEGATIVE); *PHENCYCLIDINE SCREEN,URINE NEGATIVE (NEGATIVE)
[2016-11-23] MEDS: NAPROXEN 500 MG TABLET PO SCH (20:39)
[2016-11-24] VITALS: BP 109/62
--- NOTE | 2016-11-24 04:05 | NUR ---
RN note Pt refused 0400 Vital Signs check and COWS/CIWA assessment despite explanation of risks and benefits. RR=16. No SOB noted. Will continue to monitor pt.
--- NOTE | 2016-11-24 07:14 | NUR ---
End of Shift Pt is a 26-year old, male, admitted for Benzo, ETOH, Subutex, Methamphetamine and Marijuana dependence. Pt is on Regular Diet, Full Code with NKA. He reports a PMHx of Hep C, Kidney Stones, Herniated Disc, Pinched Nerve, Anxiety and Depression. Pt reports using Xanax, Klonopin PO 4-6 mg daily for 9 years, ETOH (whiskey/ beer) 750 mL of whiskey and 12 pack of beer daily for 9 years, Subutex 8 mg daily for 2 years, Methamphetamine 1 gram occasionally for 5 years and Marijuana 3.5 gram daily for 9 years. Pt was placed on a 5 day Ativan taper started on 11/17/16 and 6 day Subutex taper started 11/16/16. His taper was modified on on 11/21/16. Both tapers done and with no untoward signs and symptoms. Pt is AAOx4, with mild anxiety noted. With flushed skin observed. Pt is ambulatory with steady gait, with no open skin noted. No SOB noted, not in respi distress. Fall, universal, seizure and safety prec in place. Call light within reach. Kept pt warm, dry and comfortable. All needs met. Latest COWS=2, CIWA=1, slept for 5 hours. Endorsed to AM shift nurse for continuity of care.
--- NOTE | 2016-11-24 07:15 | NUR ---
Start of shift note Pt was admitted for Benzo, ETOH, Subutex, Methamphetamine and Marijuana dependence. Pt is on Regular Diet, Full Code with NKA. He reports a PMH of Hep C, Kidney Stones, Herniated Disc, Pinched Nerve, Anxiety and Depression. Pt has completed a 6 day subutex taper and 5 day ativan taper without any ASE. Pt is scheduled to discharge today. Pt is currently sleeping in his bed. Safety precautions in place. Bed is locked in a low position, call light within reach. All needs addressed at this time.
[2016-11-24 08:00] VITALS: BP 98/54
[2016-11-24] MEDS: LIDOCAINE 5% PATCH TD SCH (09:00)
[2016-11-24] MEDS ORDERED: FAMOTIDINE 20 MG TABLET PO SCH (09:00)
[2016-11-24] MEDS: GABAPENTIN 300 MG CAPSULE PO SCH (09:20)
[2016-11-24] MEDS: NAPROXEN 500 MG TABLET PO SCH (09:20)
[2016-11-24] MEDS: ESCITALOPRAM OXALATE 10 MG TABLET PO SCH (09:20)
[2016-11-24] MEDS: DOCUSATE SODIUM 250 MG CAPSULE PO SCH (09:20)
[2016-11-24] MEDS: THIAMINE HCL 100 MG TABLET PO SCH (09:20)
[2016-11-24] MEDS: BACLOFEN 20 MG TABLET PO SCH (09:20)
[2016-11-24] MEDS: FOLIC ACID 1 MG TABLET PO SCH (09:20)
[2016-11-24] MEDS: DICYCLOMINE HCL 20 MG TABLET PO SCH (09:20)
[2016-11-24] MEDS: MULTIVITAMINS,THERAPEUTIC TABLET PO SCH (09:20)
--- NOTE | 2016-11-24 09:46 | NUR ---
START OF SHIFT Received patient laying in his bed. Patient is 26-year-old male admitted medically supervised withdrawal from alcohol, prescription benzodiazepines, and buprenorphine. Patient is full code with NKA, on seizure and fall precautions and on regular diet. Patient is awaiting for pending discharge today. On assessment this AM: CIWA: 0 and COWS: 1. Patient reports mild joint/bony aches. Patient denies SOB/chest pain/n/v/dizziness/anxiety/ insomnia at this time. Patient is calm and cooperative during the assessment. Denies any suicidal or homicidal ideation at this time. Med and treatment compliant. Patient able to verbalize needs and express thoughts and feelings. No concerns or questions verbalized at this time. All needs met at this time. Call lights within reach and bed at low setting. Will continue to monitor patient.
--- NOTE | 2016-11-24 12:38 | NUR ---
DISCHARGE NOTE Patient was discharged in a stable condition. Alert and oriented X4, vital signs WNL, skin intact, denies any suicidal or homicidal ideations. Patient took his AM meds. All discharge paperwork completed, signed and dated. Patient provided with discharge instructions, patient verbalized understanding. Last CIWA: 0 and COWS: 1. Patient was discharged from [facility] at 12:38pm to be picked up to go to [place]. Patient left the facility with all of his belongings and prescriptions and his personal medications. Patient refused his treatment discharge plan and did not go inside the picker machine operator car, he was discharged ot the lobby. DISCHARGE NOTE Patient was discharged in a stable condition. Alert and oriented X4, vital signs WNL, skin intact, denies any suicidal or homicidal ideations. Patient took his AM meds. All discharge paperwork completed, signed and dated. Patient provided with discharge instructions, patient verbalized understanding. Last CIWA: 0 and COWS: 1. Patient was discharged from [facility] at 12:38pm to go to [place] via transportation that was arranged for patient picker machine operator. Patient left the facility with all of his belongings and prescriptions and his personal medications. Patient refused his treatment discharge plan to go to [place] and did not go inside the picker machine operator car.
[2016-11-24 19:17] LABS: *AMPHETAMINE Positive (.); *BENZODIAZEPINES Negative (Cutoff=300); *CANNABINOID (THC) Positive (.); *METHAMPHETAMINE Positive (.)
== END 2016-11-24 12:56 | disposition home or self-care (01) | DRG 895 ==
LOC: SRC 17:02
PROVIDERS: ADMIT Internal Medicine; ATTEND Internal Medicine
PROC: HZ2ZZZZ Detoxification Services for Substance Abuse Treatment (ICD-10-PCS; principal; 2016-11-16)
PROC: HZ31ZZZ Individual Counseling for Substance Abuse Treatment, Behavioral (ICD-10-PCS; 2016-11-19)
PROC: HZ41ZZZ Group Counseling for Substance Abuse Treatment, Behavioral (ICD-10-PCS; 2016-11-21)
DX: F10.230 Alcohol dependence with withdrawal, uncomplicated (principal); F31.4 Bipolar disorder, current episode depressed, severe, without psychotic features; E87.3 Alkalosis; F15.20 Other stimulant dependence, uncomplicated; F11.23 Opioid dependence with withdrawal; Y90.9 Presence of alcohol in blood, level not specified; Z81.8 Family history of other mental and behavioral disorders; Z81.4 Family history of other substance abuse and dependence; Z59.0 Homelessness; G89.29 Other chronic pain; F41.9 Anxiety disorder, unspecified; S80.811A Abrasion, right lower leg, initial encounter; X58.XXXA Exposure to other specified factors, initial encounter; Y92.89 Other specified places as the place of occurrence of the external cause; B19.20 Unspecified viral hepatitis C without hepatic coma; E86.0 Dehydration; F17.210 Nicotine dependence, cigarettes, uncomplicated; J20.8 Acute bronchitis due to other specified organisms; K59.00 Constipation, unspecified; K08.89 Other specified disorders of teeth and supporting structures; M54.5 Low back pain; R60.9 Edema, unspecified; F12.90 Cannabis use, unspecified, uncomplicated; F13.230 Sedative, hypnotic or anxiolytic dependence with withdrawal, uncomplicated
CPT/HCPCS: 36415; 70030-TC; 71010; 73590; 80307; 80324; 80346; 80349; 83690; 83735; 84100; 84443; 85025; 85610; 86580; 86592; 86705; 86803; 87070; 87340; 87521; 87806; A4663; A9150; G6040-TC; J3411